=== PATIENT | male | born 1950 | race Caucasian/White ===

== ENCOUNTER 2019-11-12 05:08 | Emergency (ER) | payer OTHER, SELFPAY ==
[2019-11-12 05:10] VITALS: BP 130/83; PULSE 47; RESP 22; TEMP 35.9; O2SAT 98; BMI 23.1
--- NOTE | 2019-11-12 05:10 | CT_ITS ---
STUDY: CT ABDOMEN AND PELVIS WITHOUT CONTRAST REASON FOR EXAM: Male, 69 years old. LT FLANK PAIN THIS AM RADIATION DOSAGE (If Supplied By Facility): CTDIvol = ( 6.08 ) mGy, DLP = ( 325.11 ) mGycm TECHNIQUE: Transaxial 2.5 mm images were obtained from the dome of the diaphragm to the symphysis pubis without oral contrast, and without intravenous contrast. Sagittal and coronal images were reconstructed. This examination is limited for the evaluation of gastrointestinal, solid organs and vascular structures due to the lack of intravenous and oral contrast. Individualized dose optimization techniques were used for this CT. COMPARISON: CT abdomen and pelvis 06/20/2012 FINDINGS: Mild compression of the tendon lung parenchyma. Minimal emphysematous changes. There is coronary artery calcification. 0.6 cm low-attenuation the right hepatic lobe is stable since 2011. Normal gallbladder and extrahepatic biliary system. Normal spleen. Normal pancreas. Normal bilateral adrenal glands. Normal right kidney. Mild left hydronephrosis and proximal hydroureter with a left mid ureteral calculus 0.2 cm image 107 at the level of the L4-5 disc space level. Mild perirenal stranding. No other ureteral calculus detected. Normal visualized stomach. Normal small intestine. Normal colon. The appendix is visualized and appears normal. There is new mild atherosclerotic calcification of the abdominal aorta, without a demonstrated aneurysm. Normal inferior vena cava. Normal retroperitoneum. Normal urinary bladder. There is stable enlargement of the prostate gland. There is a stable small umbilical hernia containing fat. There are diffuse degenerative changes of the visualized lumbar spine. CT/Abdomen/Pelvis without Cont IMPRESSION: Mild left hydronephrosis and proximal hydroureter with an obstructing 2 mm mid left ureteral calculus. There are low-attenuation the right hepatic lobe since 2011 felt to be a benign entity such as a cyst. Mild progression of degenerative changes. Stable mild atherosclerosis of the abdominal aorta. Minimal emphysematous changes in the lung bases not seen on previous exam. Mild arteriosclerosis of the abdominal aorta, coronary artery calcifications were not visualized on prior exam. Electronically Signed: Joy Gibbs MD at 6:11 EST , Service support ,
--- NOTE | 2019-11-12 05:10 | ED.VIS.GI ---
History of Present Illness Chief Complaint: Flank Pain Informant: Patient - Abdominal Pain/Flank Pain Onset: Hours - 1 Context: Sudden Onset - woke him up from sleep Timing: Continuous, Waxes and wanes Quality: Aching Location: Left Flank - more in low back on left; denies abdominal pain Current Severity: Severe Maximum Severity: Severe Worsened by: Nothing Relieved by: Nothing - Nausea/Vomiting/Emesis GI Symptom: Nausea, Vomiting Quality: Nonbilious. Negative for: Blood streaks, Coffee ground, Hematemesis Severity: Moderate - Diarrhea/Melena/Hematochezia GI Symptom: Negative for: Diarrhea, Melena, Hematochezia Associated Symptoms: Negative for: Dysuria, Frequency, Hematuria Narrative: In severe pain. No thoracic symptoms, syncope, near syncope, or any abdominal pain. He urinated after the onset of the pain, and did not notice anything unusual. States he sees doctors at the OR for primary care. He denies having any known medical problems. Denies medication allergies. The initial history is somewhat limited due to acuity and the amount of pain that he is in, and the fact that he is continuously retching. Prior similar symptoms: No Recent Illness/Hospitalization: No Past Medical History - Allergies and Home Meds Allergies/Adverse Reactions: Allergies No Known Allergies Allergy (Verified 11/12/19 05:09) Primary Care Physician: Leigh Doctor,Out of [NON-STAFF] - Lives: Spouse/ Significant Other Smoking Status: Current every day smoker Drugs: None Review of Systems General: Reports: Malaise. Denies: Chills, Fever, Sweats Eyes: Denies: Visual changes - bilaterally, Diplopia ENT: Denies: Rhinorrhea, Sore throat Cardiovascular: Denies: Chest pain, Palpitations Respiratory: Denies: Dyspnea, Cough, Dyspnea on exertion Gastrointestinal: Reports: Nausea, Vomiting. Denies: Abdominal pain, Diarrhea, Melena, Hematochezia Genitourinary: Denies: Dysuria, Hematuria, Frequency Musculoskeletal: Reports: Back pain. Denies: Neck pain, Swelling, Extremity Pain Skin: Denies: Rash, Wounds Neurological: Denies: Headache, Weakness, Numbness Physical Exam Inital Vital Signs reviewed: Yes General: Well nourished, Well developed, Acute Distress - pain, vomiting Head: Normocephalic, Atraumatic Eyes: Perrl, EOMI ENT: Moist mucous membranes, No rhinorrhea Neck: Supple, Nontender Cardiovascular: Regular rate, Regular rhythm, No murmurs. Negative for: Tachycardia Respiratory: No distress, CTA bilaterally, Chest nontender Abdomen: Soft, Nontender, Nondistended, Normal bowel sounds. Negative for: Pulsatile mass Back: Normal Inspection, CVA tenderness - left only, - - nml inspection; no rash Extremities: Nontender, No edema. Negative for: Calf Tenderness Skin: Normal color, No rash, No Trauma Neurological: Alert, Oriented x3, Cranial nerves II-XII grossly intact, Normal Strength, Normal Sensation, Normal Gait Psychological: Normal Mood, - - anxious Diagnostic/Tx/Re-eval Impressions Abdomen/Pelvis CT 11/12/19 05:10 IMPRESSION: Mild left hydronephrosis and proximal hydroureter with an obstructing 2 mm mid left ureteral calculus. There are low-attenuation the right hepatic lobe since 2011 felt to be a benign entity such as a cyst. Mild progression of degenerative changes. Stable mild atherosclerosis of the abdominal aorta. Minimal emphysematous changes in the lung bases not seen on previous exam. Mild arteriosclerosis of the abdominal aorta, coronary artery calcifications were not visualized on prior exam. Electronically Signed: Joy Gibbs MD at 6:11 EST , Service support , 11/12/19 05:10 Abdomen/Pelvis without Cont [CT] Stat Laboratory Results 11/12/19 05:55 Urine Color Meghana Urine Clarity Sl. Cloudy Urine pH 5.0 Ur Specific [place] 1.025 Urine Protein 30 H Urine Glucose (UA) Normal Urine Ketones 5 H Urine Occult Blood 250 H Urine Nitrite Negative Urine Bilirubin Negative Urine Urobilinogen 1 H Ur Leukocyte Esterase 25 H Urine RBC > 100 SEEN Urine WBC 0 SEEN Ur Squamous Epith Cells 0 SEEN Calcium Oxalate Crystal 1+ Urine Bacteria 0 SEEN Urine Mucus 2+ - Medical Decision Making Patient symptoms completely resolved after doses of Toradol, morphine, Zofran. 2 mm stone with hydronephrosis is seen, which should be able to pass without assistance. Expectant management indicated for this. His pain started coming back prior to discharge so he was retreated but stable and he is comfortable going home with this plan. Prescribed [place] after a negative oarrs report as well as Zofran and discussed reasons to return. No sign of infection on the urinalysis. ED Disposition - Plan for ED Patient: Disposition: Home or Assisted Living Diagnosis: Ureterolithiasis, Renal colic on left side Instructions: KIDNEY STONE w/ Colic Prescriptions: Hydrocodone Bitart/Apap 5-325 [[place] 5MG-325MG] 1 tablet PO Q4H PRN PRN 2 Days #10 tablet PRN Reason: Pain Transmission Status: Re[id number] Ondansetron [Zofran] 8 mg PO Q8H PRN PRN #12 tab PRN Reason: Nausea Transmission Status: Pending to [id number] Referrals: [facility] Doctor,Out of [NON-STAFF] - Andrew Burciaga MD [STAFF PHYSICIAN] - 1-2 Weeks (if not improving)
[2019-11-12] MEDS: Ondansetron 4 MG/2 ML Vial IV (05:17)
[2019-11-12] MEDS: Ketorolac 30 MG/ML Syringe 15 MG IV (05:18)
[2019-11-12] MEDS: Morphine 4 MG/ML Syringe IV ×2 (05:18→06:39)
[2019-11-12 06:00] LABS: Bacteria 0 SEEN /hpf (None Seen); Squamous Epithelial Cells - UA 0 SEEN /hpf (0-5); White Blood Cells 0 SEEN /hpf (0-5)
[2019-11-12 06:03] LABS: Color, Urine Amber (Yellow); Glucose, Dipstick Normal (Normal); Ketone-Dipstick 5 mg/dl (Negative); Leukocyte Esterase-Dipstick 25 /ul (Negative); Nitrite-Dipstick Negative (Negative); Occult Blood-Urine 250 /ul (Negative); Protein-Dipstick 30 mg/dl (Negative); Specific Gravity, Urine 1.025 (1.002-1.030); Urine Bilirubin Dipstick Negative (Negative); Urine Clarity Sl. Cloudy (Clear); Urine Urobilinogen 1 mg/dl (Normal)
[2019-11-12 06:14] LABS: Calcium Oxalate Crystals Ur 1+ /hpf (<or=2+); Mucous, Urine 2+ /hpf (<or=2+); Red Blood Cells-Urine > 100 SEEN /hpf (0-5)
[2019-11-12] MEDS: HYDROmorphone 1 MG/ML Syringe IV (07:01)
[2019-11-12 07:28] VITALS: BP 103/69; PULSE 58; RESP 16; O2SAT 92
== END 2019-11-12 07:29 | disposition home or self-care (01) ==
PROVIDERS: Emergency Provider Emergency Medicine
DX: N13.2 Hydronephrosis with renal and ureteral calculous obstruction (principal); F17.200 Nicotine dependence, unspecified, uncomplicated
CPT/HCPCS: 74176; 81001; 96374; 96375; 96376; 99284; J7030; A4216; J2405

== ENCOUNTER 2019-11-22 09:48 | Emergency (ER) | payer OTHER, SELFPAY ==
[2019-11-22 09:49] VITALS: BP 143/90; PULSE 71; RESP 18; TEMP 36.6; O2SAT 98; BMI 21.5
--- NOTE | 2019-11-22 10:06 | ED.VIS.GI ---
History of Present Illness Chief Complaint: Flank Pain Informant: Patient - Abdominal Pain/Flank Pain Onset: Weeks - 1 Context: Gradual Onset Timing: Waxes and wanes Quality: Aching Location: Left Flank - and suprapubic Current Severity: Mild Maximum Severity: Moderate Worsened by: Nothing Relieved by: - - Rx analgesics - Nausea/Vomiting/Emesis GI Symptom: Negative for: Nausea, Vomiting - Diarrhea/Melena/Hematochezia GI Symptom: Negative for: Diarrhea, Melena, Hematochezia Associated Symptoms: Hematuria. Negative for: Dysuria, Frequency, Urgency Narrative: Patient was seen here about 1.5 weeks ago, diagnosed with a left mid ureteral kidney stone without any other signs of urolithiasis on CT. He states after leaving here his pain was well controlled and he was pain-free for 3 or 4 days. Then the pain came back, same pain, except now he is also feeling suprapubic deep discomfort. He developed hematuria now when he urinates, it looks like straight blood. He denies having any clots or urinary retention. No fevers, nausea, vomiting. He states he took Naprosyn and prescription narcotic pain reliever this morning prior to coming here and his symptoms are well controlled now but he was concerned about the blood. He is a [place] patient. He has yet to be able to follow-up since it was [place]/. - Past Medical History (1) Kidney stones Status: Chronic Past Medical History - Allergies and Home Meds Allergies/Adverse Reactions: Allergies No Known Allergies Allergy (Verified 11/22/19 09:51) Primary Care Physician: [facility] [Primary Care Provider] - Lives: Spouse/ Significant Other Smoking Status: Current every day smoker Review of Systems General: Denies: Chills, Fever, Sweats Eyes: Denies: Visual changes - bilaterally, Diplopia ENT: Denies: Rhinorrhea, Sore throat Cardiovascular: Denies: Chest pain, Palpitations Respiratory: Denies: Dyspnea, Cough, Dyspnea on exertion Gastrointestinal: Reports: Abdominal pain. Denies: Nausea, Vomiting, Diarrhea, Melena, Hematochezia Genitourinary: Reports: Hematuria. Denies: Dysuria, Frequency Musculoskeletal: Reports: Back pain - left flank. Denies: Swelling, Extremity Pain Skin: Denies: Rash, Wounds Neurological: Denies: Headache, Weakness, Numbness Physical Exam Vital Signs/Narrative: Vital Signs Temp Pulse Resp BP Pulse Ox 11/22/19 09:49 98 F 71 18 143/90 H 98 Inital Vital Signs reviewed: Yes General: Well nourished, Well developed, No Acute Distress Head: Normocephalic, Atraumatic Eyes: Perrl, EOMI ENT: Moist mucous membranes, No rhinorrhea Neck: Supple, Nontender Cardiovascular: Regular rate, Regular rhythm, No murmurs Respiratory: No distress, CTA bilaterally, Chest nontender Abdomen: Soft, Nondistended, Normal bowel sounds, No masses, Tender - suprapubic and LLQ, mild. Negative for: Guarding, Rebound tenderness, Pulsatile mass Back: Nontender, Normal Inspection. Negative for: CVA tenderness Extremities: Nontender, No edema Skin: Normal color, No rash, No Trauma Neurological: Alert, Oriented x3, Cranial nerves II-XII grossly intact, Normal Strength, Normal Sensation, Normal Gait Psychological: Normal affect, Normal Mood Diagnostic/Tx/Re-eval Laboratory Tests 11/22/19 11/22/19 11/22/19 Range/Units 10:15 09:57 09:57 WBC 6.6 (4.4-11.0) K/mm3 RBC 4.59 L (4.6-6.2) M/mm3 Hgb 14.4 (13.0-16.5) g/dL Hct 43.0 (40-54) % MCV 93.7 (80-94) fL MCH 31.4 (27.0-32.0) pg MCHC 33.5 (32-36) g/dL RDW Std Deviation 44.4 H (35.1-43.9) fl RDW Coeff of Familia 13.0 (11.6-14.6) % Plt Count 183 (150-450) K/mm3 MPV 9.9 (6.2-12.0) fl Immature Gran % (Auto) 0.300 (0.0-0.9) % Neut % (Auto) 45.9 L (47-70) % Lymph % (Auto) 36.1 (19-41) % [place] % (Auto) 11.6 H (0-10) % Eos % (Auto) 5.0 (0-5) % Baso % (Auto) 1.1 H (0-1) % Absolute Neuts (auto) 3.1 (2.0-7.7) X10^3/uL Absolute Lymphs (auto) 2.40 (0.83-4.51) X10^3/uL Nucleated RBC % 0 (0-5) % Sodium 143 (136-145) mmol/L Potassium 4.2 (3.5-5.1) mmol/L Chloride 110 H (98-107) mmol/L Carbon Dioxide 30.0 (21.0-32.0) mmol/L Anion Gap 3 L (5-15) BUN 19 H (7-18) mg/dL Creatinine 1.07 (0.70-1.30) mg/dL Estim Creat Clear Calc 62.75 ml/min Est GFR (MDRD) Af Amer 89 (>60) mL/min Est GFR (MDRD) Non-Af 73 (>60) mL/min BUN/Creatinine Ratio 17.8 (10-20) RATIO Glucose 108 H (74-106) mg/dL Calcium 9.1 (8.5-10.1) mg/dL Urine Color Red (Yellow) Urine Clarity Turbid (Clear) Urine pH 7.0 (5.0 - 8.0) Ur Specific [place] 1.020 (1.002-1.030) Urine Protein 500 H (Negative) mg/dl Urine Glucose (UA) Normal (Normal) mg/dl Urine Ketones 5 H (Negative) mg/dl Urine Occult Blood 250 H (Negative) /ul Urine Nitrite Negative (Negative) Urine Bilirubin Negative (Negative) mg/dL Urine Urobilinogen Normal (Normal) mg/dl Ur Leukocyte Esterase Negative (Negative) /ul Urine RBC 25-50 SEEN (0-5) /hpf Urine WBC 25-50 SEEN (0-5) /hpf Ur Squamous Epith Cells 0 SEEN (0-5) /hpf Urine Bacteria 2+ (None Seen) /hpf Urine Mucus 0 SEEN (<or=2+) /hpf - Medical Decision Making Patient had a CT last week that showed a 2 mm mid ureteral stone on the left. Patient states the pain is the same, therefore I do not think he needs to be reimaged. Furthermore, the hematuria is likely explained by this. For this reason, I do not think putting a Rivera in him and irrigating his bladder will be helpful since the bleeding is probably coming from the ureter. Patient does not want this if he can be helped. He has not having any clots or retention, and in his urine sample there were no clots according to nursing. He started having more pain coming back, he was given a dose of morphine, and a second dose later at his request prior to discharge which he is okay with. I discussed with Dr. Burciaga on-call for urology, he agrees that the patient should be able to safely follow-up as an outpatient, and upon looking at the scan he states that the stone is probably bigger than 2 mm. I discussed with the patient reasons to return to the hospital, especially urinary retention or clots. He was given a refill on his [place] and will follow-up. His labs look good today and there is no sign of infection or renal insufficiency. ED Disposition - Plan for ED Patient: Disposition: Home or Assisted Living Diagnosis: Ureteral colic, Urolithiasis Instructions: KIDNEY STONE w/ Colic Prescriptions: Hydrocodone Bitart/Apap 5-325 [[place] 5MG-325MG] 1 tablet PO Q6H PRN PRN 4 Days #16 tablet PRN Reason: Pain Transmission Status: [id number] Referrals: Andrew Burciaga MD [STAFF PHYSICIAN] - 1 Week (or [facility] -- call for appt)
[2019-11-22 10:14] LABS: Absolute Neutrophil Count 3.1 X10^3/uL (2.0-7.7); Basophil# 0.07 X10^3/uL; Basophil% 1.1 % (0-1); Eosinophil# 0.33 X10^3/uL; Hemoglobin 14.4 g/dL (13.0-16.5); Lymphocyte % 36.1 % (19-41); Mean Corp Hgb Conc 33.5 g/dL (32-36); Mean Corpuscular Hgb 31.4 pg (27.0-32.0); Mean Corpuscular Volume 93.7 fL (80-94); Mean Platelet Vol. 9.9 fl (6.2-12.0); Monocyte# 0.77 X10^3/uL; Monocyte% 11.6 % (0-10); NRBC Flagged by Analyzer 0 % (0-5); Neutrophil # 3.05 X10^3/uL (2.7-7.7); Neutrophil % 45.9 % (47-70); Platelet Count 183 K/mm3 (150-450); RBC Distribution Width SD 44.4 fl (35.1-43.9); Red Blood Count 4.59 M/mm3 (4.6-6.2); White Blood Count 6.6 K/mm3 (4.4-11.0)
[2019-11-22] MEDS: 0.9% Normal Saline 1,000 ML 999 ML IV (10:15)
[2019-11-22 10:21] LABS: Mucous, Urine 0 SEEN /hpf (<or=2+); Squamous Epithelial Cells - UA 0 SEEN /hpf (0-5)
[2019-11-22 10:23] LABS: Anion Gap 3 (5-15); BUN 19 mg/dL (7-18); BUN/Creat Ratio 17.8 RATIO (10-20); Calcium,Total 9.1 mg/dL (8.5-10.1); Chloride 110 mmol/L (98-107); Creatinine, Serum 1.07 mg/dL (0.70-1.30); EST Glomerular Filtration Rate 73 mL/min (>60); Est Glom Filt Rate - Afr Amer 89 mL/min (>60); Estimated Creatinine Clearance 62.75 ml/min; Glucose 108 mg/dL (74-106); Potassium 4.2 mmol/L (3.5-5.1); Sodium Level 143 mmol/L (136-145)
[2019-11-22 10:32] LABS: Color, Urine Red (Yellow); Glucose, Dipstick Normal (Normal); Ketone-Dipstick 5 mg/dl (Negative); Leukocyte Esterase-Dipstick Negative /ul (Negative); Nitrite-Dipstick Negative (Negative); Occult Blood-Urine 250 /ul (Negative); Protein-Dipstick 500 mg/dl (Negative); Urine Bilirubin Dipstick Negative (Negative); Urine Clarity Turbid (Clear); Urine Urobilinogen Normal (Normal)
[2019-11-22 10:40] LABS: Bacteria 2+ /hpf (None Seen); Red Blood Cells-Urine 25-50 SEEN /hpf (0-5); White Blood Cells 25-50 SEEN /hpf (0-5)
[2019-11-22] MEDS: Morphine 4 MG/ML Syringe IV ×2 (11:43→12:32)
[2019-11-22 12:35] VITALS: BP 131/78; PULSE 50; RESP 18; O2SAT 96
== END 2019-11-22 12:46 | disposition home or self-care (01) ==
PROVIDERS: Emergency Provider Emergency Medicine
DX: N20.1 Calculus of ureter (principal); R31.9 Hematuria, unspecified; F17.200 Nicotine dependence, unspecified, uncomplicated; Z79.82 Long term (current) use of aspirin; Z79.899 Other long term (current) drug therapy; Z87.442 Personal history of urinary calculi
CPT/HCPCS: 80048; 81001; 85025; 96361; 96374; 96376; 99283; J7030; A4216

== ENCOUNTER 2024-04-16 17:06 | Emergency (ER) | payer OTHER, SELFPAY ==
[2024-04-16 17:07] VITALS: BP 156/107; PULSE 62; RESP 18; TEMP 36.6; O2SAT 98; BMI 21.3
[2024-04-16 17:32] VITALS: O2SAT 99
--- NOTE | 2024-04-16 18:33 | EKG12_ITS ---
Test Reason : DYSRHYTHMIA Blood Pressure : / mmHG Vent. Rate : 057 BPM Atrial Rate : 057 BPM P-R Int : 168 ms QRS Dur : 072 ms QT Int : 412 ms P-R-T Axes : 055 -33 025 degrees QTc Int : 401 ms Sinus bradycardia Left axis deviation Septal infarct , age undetermined Abnormal ECG Confirmed by HUONG RICARDO, ENDY ([id number]), proposal editor SANCHEZ CRAMER ([id number]) on 04/18/2024 6:30:52 AM Referred By: Confirmed By:JAYA BORJA MD
--- NOTE | 2024-04-16 18:35 | ED.VIS.DYS ---
HPI History of Present Illness Chief Complaint: Shortness of Breath Informant: patient Onset/Context/Timing Onset: Days (3-4) Context: sudden and sleep Timing: Continuous Quality: Positive for Orthopnea Worsened by: Lying flat Relieved by: - (Sitting upright and nasal straps) Associated Symptoms Negative for cough, rhinorrhea, post nasal drip, ear pain, fever, sore throat, chills, sweats, clear sputum, white sputum, yellow sputum or green sputum Chest Pain: Positive for Intermittent and Dull Narrative Narrative: Patient presents with shortness of breath that has been getting worse over the past 3 to 4 days. Patient states it woke him up out of his sleep a couple days ago. Patient states that he has had to sleep sitting up. Patient states he also applied nasal strips which has been helping. Patient denies any cough. Patient denies any fevers or chills. Patient states he did have some intermittent pain in his chest. Patient describes it as dull. Patient states it only lasted for couple minutes. Patient states his pain does radiate into his back and neck. [facility] Medical History (Updated 04/16/24 @ 21:[address] Mt Oliver DO) Hypercholesterolemia Smoker Hemorrhoid Depression Home Medications ?Medication ?Instructions ?Recorded ?Last Taken ?Type aspirin 81 mg chewable tablet 81 mg PO DAILY@0800 04/06/14 Unknown History simvastatin 20 mg tablet 20 mg PO QHS 04/06/14 Unknown History sertraline 50 mg tablet 50 mg PO DAILY 11/22/19 Unknown History hydroxyzine pamoate 25 mg capsule 50 mg (2 x 25 mg) PO QHS PRN PRN 04/16/24 Unknown Rx Anxiety #10 CAPSULES Allergy/AdvReac Type Severity Reaction Status Date / Time No Known Allergies Allergy Verified 04/16/24 17:09 Surgical History (Updated 04/16/24 @ 21:[address] Mt Oliver DO) History of nasal surgery Hx of hemorrhoidectomy Social History Smoking Status: Current every day smoker tobacco type: cigarettes ROS ROS ED Constitutional Constitutional ED: Denies chills or fever(s) Eyes Eyes: Denies blurry vision or change in vision ENT ENT ED: Denies rhinorrhea or sore throat Cardiovascular Cardiovascular: Reports chest pain; Denies palpitations Respiratory/Chest Respiratory/Chest: Reports dyspnea; Denies cough Gastrointestinal Gastrointestinal: Denies nausea or vomiting Genitourinary Genitourinary ED: Denies dysuria or hematuria Musculoskeletal Musculoskeletal: Reports back pain and neck pain Integumentary Denies abscess or rash Neurologic Neurologic: Denies headache(s) or weakness Allergic/Immunologic Allergic/Immunologic ED: Denies mouth swelling or urticaria EXAM Physical Exam Const Vital Signs: 04/16/24 17:07 04/16/24 17:32 04/16/24 18:42 Temperature 97.8 F Temperature Source Temporal Pulse Rate 62 55 L Respiratory Rate 18 14 Respiratory Effort Normal Non-Labored Respiratory Depth Normal Respiratory Pattern Normal Normal Blood Pressure 156/107 H Blood Pressure Mean 123 Pulse Ox 98 Oxygen Delivery Method Room Air Room Air 04/16/24 19:20 04/16/24 21:00 04/16/24 21:07 Temperature 98.5 F Temperature Source Pulse Rate 57 L 54 L 60 Respiratory Rate 16 25 H 26 H Respiratory Effort Respiratory Depth Respiratory Pattern Blood Pressure 135/81 H 150/88 H 142/78 H Blood Pressure Mean 99 108 99 Pulse Ox 98 94 94 Oxygen Delivery Method Room Air Room Air Positive well nourished and well developed General Appearance ED: well developed and NAD HEENT Reports moist mucous membranes Neck supple and no meningeal signs Resp normal respiratory effort Auscultation: wheezes Cardio regular rate and regular rhythm GI non-tender and non-distended Neuro oriented x3, CN's II-XII intact bilaterally and no sensory deficits noted [place] Coma Scale: document GCS findings Spontaneous Obeys Commands Oriented 15 Sensorium / Orientation: alert Motor Exam: strength 5/5 throughout Psych mental status grossly normal MDM MDM MDM Narrative Medical decision making narrative: Differential diagnosis includes pneumonia, COPD exacerbation, anxiety, viral illness, cardiac dysrhythmia, cardiac ischemia, congestive heart failure, and pulmonary embolism. EKG will be obtained to assess for cardiac dysrhythmia and cardiac ischemia. Chest x-ray will be obtained to assess for pneumonia, congestive heart failure, and pneumothorax. CBC will be obtained to assess for leukocytosis and anemia. Basic metabolic profile will be obtained to assess for electrolyte abnormality and renal function. High-sensitivity troponin will be obtained to assess for cardiac ischemia. D-dimer will be obtained to assess for pulmonary embolism. BNP will be obtained to assess for congestive heart failure. Lab Data Attestation: I reviewed the patient's lab results. Lab results narrative: CBC was reviewed and was within normal limits. Basic metabolic profile was reviewed and was within normal limits. High-sensitivity troponin was reviewed and was normal at 4. BNP was reviewed and was normal at 6.2. D-dimer was reviewed and was 0.68. This is normal for the patient's age of 73. COVID-19 PCR was reviewed and was negative. Influenza PCR was reviewed and was negative for influenza A and influenza B. RSV PCR was reviewed and was negative. Labs: Laboratory Results - last 24 hr 04/16/24 18:40 WBC 6.0 RBC 4.37 L Hgb 13.7 Hct 40.7 MCV 93.1 MCH 31.4 MCHC 33.7 RDW Std Deviation 45.2 H RDW Coeff of Familia 13.2 Plt Count 204 MPV 10.2 Immature Gran % (Auto) 0.300 Neut % (Auto) 51.0 Lymph % (Auto) 30.0 Major % (Auto) 12.4 H Eos % (Auto) 5.5 H Baso % (Auto) 0.8 Absolute Neuts (auto) 3.1 Absolute Lymphs (auto) 1.81 Nucleated RBC % 0 Differential Comment SCANNED Diff Path Review Not Reportable D-Dimer Quant (PE/DVT) 0.68 H* Sodium 139 Potassium 3.8 Chloride 108 H Carbon Dioxide 26.0 Anion Gap 5 BUN 19 H Creatinine 0.90 Estim Creat Clear Calc 69.76 Est GFR (MDRD) Af Amer 107 Est GFR (MDRD) Non-Af 88 BUN/Creatinine Ratio 21.1 H Glucose 89 Calcium 9.1 Troponin I High Sens 4 B-Natriuretic Peptide 6.2 Radiography Chest X-Ray - ED: 2 View, Read by ED Physician, Read by Radiologist, No Acute Disease and Chronic Changes Diagnostic Testing: Clinical Impression(s) from Imaging Studies Chest X-Ray 04/16/24 19:00 IMPRESSION: Degenerative changes, as described above. No demonstrated acute cardiopulmonary process. Electronically Signed: Akash Cabello MD at 19:39 EDT , PA and lateral chest x-ray was obtained. There are 2 views. On my independent interpretation, lung guzman show chronic changes. There is normal cardiac silhouette. Bony thorax shows some degenerative changes of the thoracic spine. There is no acute process noted. Radiologist also interpreted the x-ray and agrees. EKG Initial EKG: Attestation: I personally reviewed and interpreted this EKG as follows: Interpretation: No Acute Injury Pattern and Sinus Bradycardia (57) Comments: EKG was obtained. On my independent interpretation, it showed a sinus bradycardia with a rate of 57. CA interval, QRS interval, and QTc intervals were all normal. There is left axis deviation at -33. There are no acute ST or T wave changes. Prior EKG tracings: not available for review Prior: No Prior Treatment and Re-Evaluation :: Patient was advised of his findings. Patient was given a DuoNeb aerosol here. Patient felt better after this. Patient states he has inhalers at home. Patient was instructed to follow-up with his primary care physician in 5 to 7 days. Patient requested something to help with his sleep tonight. Patient was given a prescription for hydroxyzine to take at bedtime. Patient was instructed to follow-up with his primary care physician in 5 to 7 days. Patient understood and was agreeable with the plan. All questions were answered. Discharge Plan Triage Chief Complaint: Shortness of Breath ED Provider: Mt Oliver Dx/Rx/DC Orders Clinical Impression: Dyspnea, COPD exacerbation, Tobacco use disorder Instructions: ED COPD Flare, ED Dyspnea Prescriptions: New hydroxyzine pamoate 25 mg capsule 50 mg PO QHS PRN PRN (Reason: Anxiety) Qty: 10 0RF No Action simvastatin 20 MG tablet 20 mg PO QHS aspirin 81 MG tablet,chewable 81 mg PO DAILY@0800 sertraline 50 MG tablet 50 mg PO DAILY [facility] [Primary Care Provider] - 3-5 Days Print Language: Grenadian Disposition Disposition: Home, Self Care
[2024-04-16 18:42] VITALS: PULSE 55; RESP 14
[2024-04-16] MEDS: Ipratropium/Albuterol Sulfate 3 ML AMPUL.NEB INHALATION (18:42)
--- NOTE | 2024-04-16 19:00 | RAD_ITS ---
STUDY: X-RAY CHEST REASON FOR EXAM: Male, 73 years old. Dyspnea TECHNIQUE: PA and lateral views of the chest. COMPARISON: March 26, 2009 FINDINGS: The lungs are clear and hyper expanded. There is no demonstrated pleural abnormality. Normal size heart. Normal mediastinum and dillon. Normal visualized pulmonary arteries. Normal visualized aortic arch and descending thoracic aorta. There are degenerative changes of the visualized thoracic spine. Normal visualized ribs, clavicles, and shoulders. There is no demonstrated abnormality of the visualized soft tissue structures of the upper abdomen. RAD/Chest PA and Lateral IMPRESSION: Degenerative changes, as described above. No demonstrated acute cardiopulmonary process. Electronically Signed: Akash Cabello MD at 19:39 EDT ,
[2024-04-16 19:01] LABS: Absolute Lymphocyte Count 1.81 X10^3/uL (0.83-4.51); Absolute Neutrophil Count 3.1 X10^3/uL (2.0-7.7); Basophil# 0.05 X10^3/uL; Basophil% 0.8 % (0-1); Eosinophil# 0.33 X10^3/uL; Eosinophils% 5.5 % (0-5); Hematocrit 40.7 % (40-54); Hemoglobin 13.7 g/dL (13.0-16.5); Lymphocyte # 1.81 X10^3/ul (0.83-4.51); Mean Corp Hgb Conc 33.7 g/dL (32-36); Mean Corpuscular Hgb 31.4 pg (27.0-32.0); Mean Corpuscular Volume 93.1 fL (80-94); Mean Platelet Vol. 10.2 fl (6.2-12.0); Monocyte# 0.75 X10^3/uL; Monocyte% 12.4 % (0-10); NRBC Flagged by Analyzer 0 % (0-5); Neutrophil # 3.08 X10^3/uL (2.7-7.7); Platelet Count 204 K/mm3 (150-450); RBC Distribution Width CV 13.2 % (11.6-14.6); RBC Distribution Width SD 45.2 fl (35.1-43.9); Red Blood Count 4.37 M/mm3 (4.6-6.2)
[2024-04-16 19:20] VITALS: BP 135/81; PULSE 57; RESP 16; O2SAT 98
[2024-04-16 19:28] LABS: Anion Gap 5 (5-15); BUN 19 mg/dL (7-18); BUN/Creat Ratio 21.1 RATIO (10-20); Calcium,Total 9.1 mg/dL (8.5-10.1); Chloride 108 mmol/L (98-107); EST Glomerular Filtration Rate 88 mL/min (>60); Est Glom Filt Rate - Afr Amer 107 mL/min (>60); Estimated Creatinine Clearance 69.76 ml/min; Glucose 89 mg/dL (74-106); Potassium 3.8 mmol/L (3.5-5.1); Sodium Level 139 mmol/L (136-145); Troponin-I HS 4 pg/mL (3.0-78.0)
[2024-04-16 19:35] LABS: BNP,B-Type NATRIURETIC PEPTIDE 6.2 pg/mL (0-100); D-Dimer Quantitative (DVT/PE) 0.68 FEU/ug/m (0.27-0.49)
[2024-04-16 19:39] LABS: Differential Comment SCANNED
[2024-04-16 21:00] VITALS: BP 150/88; PULSE 54; RESP 25; O2SAT 94
[2024-04-16 21:07] VITALS: BP 142/78; PULSE 60; RESP 26; TEMP 36.9; O2SAT 94
== END 2024-04-16 21:59 | disposition home or self-care (01) ==
PROVIDERS: Emergency Provider Emergency Medicine; Visit Provider Emergency Medicine
DX: J44.1 Chronic obstructive pulmonary disease with (acute) exacerbation (principal); Z11.52 Encounter for screening for COVID-19; F17.210 Nicotine dependence, cigarettes, uncomplicated; E78.00 Pure hypercholesterolemia, unspecified; F32.A Depression, unspecified; Z79.82 Long term (current) use of aspirin; Z79.899 Other long term (current) drug therapy
CPT/HCPCS: 71046; 80048; 83880; 84484; 85025; 85379; 87631; 93005; 94640; 99284

== ENCOUNTER 2024-05-06 14:35 | Outpatient (CLI) | payer OTHER, SELFPAY ==
--- NOTE | 2024-05-06 14:39 | CT_ITS ---
STUDY: LOW DOSE CT LUNG CANCER SCREENING REASON FOR EXAM: Male, 73 years old. One pack per day smoker x54 years RADIATION DOSAGE (If Supplied By Facility): CTDIvol = ( 3.02 ) mGy, DLP = ( 112.49 ) mGycm TECHNIQUE: No contrast was administered. Low dose technique was utilized (average mAS-38 and kVp 120). 1.25 mm axial source images with a slice interval of 1.25-mm were reconstructed in lung windows. 2.5 mm axial source images with a slice interval of 2.5-mm were reconstructed in lung windows. 5.0 mm axial source images with a slice interval of 5.0-mm were reconstructed in soft tissue windows. COMPARISON: None. FINDINGS: Lung windows show nonspecific pleural thickening in the apices. There is mild underlying emphysema with bleb formation in both upper lobes and evidence of diffuse peribronchial thickening consistent with chronic bronchitis. There is no organized infiltrate, effusion, or suspicious noncalcified mass or nodule. Limited soft tissue windows show normal-appearing thyroid gland. No suspicious axillary, mediastinal, perihilar adenopathy. There are calcified coronary vessels. No thoracic aortic aneurysm. Limited cuts through the upper abdomen show a simple 1 cm cyst in the liver. No specific follow-up needed. Bony structures show degenerative change CT/Low Dose CT Lung Screening IMPRESSION: Lung-RADS category 2 - Continue annual screening with LDCT in 12 months. IMPORTANT NOTES FOR USE: ACR Lung-RADS Version 1.1 Assessment Categories Release Date: 2018 Category: Coded 0-4 bases on nodule(s) with highest degree of suspicion. Negative screen is defined as categories 1 and 2; a positive screen is defined as categories 3 and 4. Category 3 and 4A nodules that are unchanged on interval CT should be coded as category 2, and individuals returned to screening in 12 months. Category 4X: Category 3 or 4 nodules with additional imaging findings that increase the suspicion of lung cancer, such as spiculation, GGN that doubles in size in 1 year, enlarged lymph notes, etc. Category Modifiers: S (significant finding unrelated to lung cancer) Electronically Signed: Luis E Mcintosh MD at 10:46 EDT ,
== END 2024-05-06 23:59 | disposition home or self-care (01) ==
LOC: CT 14:36
PROVIDERS: PCP Internal Medicine; Referring Provider Internal Medicine; Visit Provider Internal Medicine
DX: Z12.2 Encounter for screening for malignant neoplasm of respiratory organs (principal); F17.210 Nicotine dependence, cigarettes, uncomplicated
CPT/HCPCS: 71271